=== PATIENT | female | born 1995 | race Caucasian/White ===

== ENCOUNTER 2016-12-07 22:48 | Emergency (ER) | payer SELFPAY ==
[~2016-12-07 22:48] MED LIST: AMOXICILLIN875 MG PO; BIRTH CONTROL PILL PO; PRENATAL1 TA1 PO
[2016-12-07] MEDS ORDERED: BIRTH CONTROL PILL (22:58)
== END 2016-12-08 00:01 | disposition home or self-care (01) ==
LOC: SED 22:48
DX: T78.40XA Allergy, unspecified, initial encounter (principal)
CPT/HCPCS: 99283